=== PATIENT | female | born 1975 | race Caucasian/White ===

== ENCOUNTER 2021-04-16 05:02 | Emergency (ER) | payer OTHER ==
[~2021-04-16] VITALS: Ht 172.7 cm; Wt 83.9 kg
--- NOTE | 2021-04-16 05:15 | NUR ---
PATIENT BIBRA 89 C/O AMS WITH A OLERICULTURE TEACHER WITNESSED SEIZURE LASTING 1 MIN. PATIENT GIVEN 5MG OF VERSED ENROUTE. PATIENT RR EVEN AND UNLABORED, NO SOB NOTED. PATIENT CONNECTED TO LEASING PROPERTY MANAGER AND POX.
--- NOTE | 2021-04-16 05:15 | NUR ---
SEIZURE PRECAUTION INITIATED PER PROTOCOL
--- NOTE | 2021-04-16 05:44 | NUR ---
[facility] [place] - [phone]
[2021-04-16 05:45] LABS: BASOPHILS # (AUTO) 0.1 K/uL (0.0-0.2); BASOPHILS % (AUTO) 0.6 % (0.0-2.0); EOSINOPHILS % (AUTO) 1.1 % (0.0-6.0); HEMATOCRIT 41 % (33-45); HEMOGLOBIN 13.5 g/dL (11.5-14.8); LYMPHOCYTES # (AUTO) 2.9 K/uL (0.8-4.8); MEAN CORPUSCULAR HGB CONC 33 g/dl (31.0-36.0); MEAN CORPUSCULAR VOLUME 91 fL (82-100); MONOCYTES # (AUTO) 0.4 K/uL (0.1-1.30); MONOCYTES % (AUTO) 3.5 % (2.0-12.0); NEUTROPHILS # (AUTO) 7.2 K/uL (1.8-8.9); NEUTROPHILS % (AUTO) 67.8 % (43.0-81.0); PLATELET COUNT (AUTO) 334 K/uL (150-450); RED BLOOD CELL COUNT(AUTO) 4.53 MIL/uL (4.0-5.2); WHITE BLOOD COUNT (AUTO) 10.6 K/uL (4.3-11.0)
[2021-04-16 06:06] LABS: ALANINE AMINOTRANSFERASE 16 U/L (12-78); ALBUMIN 4.2 g/dL (3.4-5.0); ALCOHOL, BLOOD < 3 mg/dL (0-0); ALKALINE PHOSPHATASE 101 U/L (46-116); ASPARTATE AMINOTRANSFERASE 23 U/L (15-37); BILIRUBIN,TOTAL 0.2 mg/dL (0.2-1.0); CALCIUM, SERUM 8.9 mg/dL (8.5-10.1); CARBON DIOXIDE 14 mmol/L (21-32); CHLORIDE 100 mmol/L (98-107); CREATININE 1.2 mg/dL (0.6-1.3); GLUCOSE 148 mg/dL (74-106); SODIUM SERUM 136 mmol/L (136-145); TOTAL PROTEIN, SERUM 8.2 g/dL (6.4-8.2); UREA NITROGEN, BLOOD 8 mg/dL (7-18)
--- NOTE | 2021-04-16 06:44 | NUR ---
EX [phone] FATHER (JENNIFER) [phone] MOTHER (JO) [phone]
--- NOTE | 2021-04-16 06:55 | NUR ---
urine collected and sent to lab
[2021-04-16 11:52] VITALS: BP 122/76
--- NOTE | 2021-04-16 11:54 | NUR ---
DISCOUNTINUED IV ACCESS AT THIS TIME
--- NOTE | 2021-04-16 12:03 | NUR ---
Patient discharged to home in stable condition. Written and verbal after care instructions given. Patient verbalizes understanding of instruction.
[2021-04-29] MEDS ORDERED: LEVE1000 PO (18:50)
[2021-04-29] MEDS ORDERED: METH4TAB3 PO (18:50)
== END 2021-04-16 12:03 | disposition home or self-care (01) ==
LOC: ER 05:09
DX: R56.9 Unspecified convulsions (principal); R41.0 Disorientation, unspecified
CPT/HCPCS: 36415; 70450-TC; 80048-TC; 80076-TC; 84703-TC; 85025-TC; 85730-TC; G0480

== ENCOUNTER 2021-04-28 06:27 | Inpatient (IN) | payer OTHER ==
[~2021-04-28] VITALS: Ht 170.2 cm; Wt 95.3 kg
--- NOTE | 2021-04-28 06:45 | NUR ---
[id number] WITNESSED TONIC CLONIC SEIZURE 2-3 MIN WITH HX OF SEIZURE. PT CURENTLY IN A POSTICTAL STATES AXO x2 TO PERSON AND PLACE DOES NOT RECALL HAVING A SEIZURE OR MEDICATIONS USED TO TREAT HER SEIZURES.+INCONTINENCE, - ORAL TRAUMA, -PHYSICAL INJURIES NOTED. PT CHANGED INTO A GOWN AND PLACED ON A MONITOR. BREATHING EVEN AND UNLABORED AND ALL VITALS STABLE. MD WAS AT THE BEDSIDE FOR EVAL.
--- NOTE | 2021-04-28 06:45 | NUR ---
Note treyone in EDM - 04/28/21 at 0707 by MARITA BIBLAURO WITNESSED TONIC CLONIC SEIZURE 2-3 MIN WITH HX OF SEIZURE. PT CURENTLY IN A POSTICTAL STATES AXO x2 TO PERSON AND PLACE DOES NOT RECALL HAVING A SEIZURE OR MEDICATIONS USED TO TREAT HER SEIZURES.-INCONTINENCE, - ORAL TRAUMA, -PHYSICAL INJURIES NOTED. PT CHANGED INTO A GOWN AND PLACED ON A MONITOR. BREATHING EVEN AND UNLABORED AND ALL VITALS STABLE. MD WAS AT THE BEDSIDE FOR EVAL.
[2021-04-28] MEDS ORDERED: IV NS 0.9% 1,000 ML BAG IV ONE (07:00)
--- NOTE | 2021-04-28 07:24 | NUR ---
REPORT GIVEN TO LIANET BURKS FOR MAHESH
--- NOTE | 2021-04-28 07:32 | NUR ---
Pt laying comfortably in bed comfortably with occasional jerks. Pleasant mood. Mild aphasia, a&ox2 to person and place, does not recall seizure, short term memory loss as evidenced by greating the same healthcare staff Q5 seconds. On monitor. Tachcardic HR 113. BP 156/76. V/S otherwise stable. On monitor. Addendum: 04/28/21 at 0826 by MARELY SEIZURE PRECAUTIONS IN PLACE
[2021-04-28 07:36] LABS: PHENYTOIN (DILANTIN) 1.4 ug/ml (10.0-20.0); VALPROIC ACID 1 ug/mL (50-100)
[2021-04-28 07:41] LABS: ALANINE AMINOTRANSFERASE 20 U/L (12-78); ALBUMIN 4.4 g/dL (3.4-5.0); ALCOHOL, BLOOD < 3 mg/dL (0-0); ALKALINE PHOSPHATASE 97 U/L (46-116); ASPARTATE AMINOTRANSFERASE 13 U/L (15-37); BILIRUBIN,DIRECT 0.1 mg/dL (0.0-0.2); BILIRUBIN,TOTAL 0.3 mg/dL (0.2-1.0); CALCIUM, SERUM 9.4 mg/dL (8.5-10.1); CARBON DIOXIDE 23 mmol/L (21-32); CHLORIDE 101 mmol/L (98-107); GLUCOSE 144 mg/dL (74-106); POTASSIUM 3.4 mmol/L (3.5-5.1); SODIUM SERUM 139 mmol/L (136-145); TOTAL PROTEIN, SERUM 8.2 g/dL (6.4-8.2); UREA NITROGEN, BLOOD 8 mg/dL (7-18)
[2021-04-28] MEDS ORDERED: LORAZEPAM INJ 2 MG/ML VIAL ONE (08:11)
--- NOTE | 2021-04-28 08:17 | NUR ---
WITNESSED EAN CLONIC SEIZURE LASTING 1 MIN, BLOODY EMESIS, PT SUCTIONED, MD AWARE, ATIVAN 2MG GIVEN, SINUS TACHCARDIA HR 103
[2021-04-28] MEDS ORDERED: LORAZEPAM INJ 2 MG/ML VIAL IV ONE (08:30)
[2021-04-28] MEDS ORDERED: LEVETIRACETAM (500MG) 1,000 MG in IV NS 0.9% 100 ML IV SCH (08:30)
--- NOTE | 2021-04-28 08:34 | NUR ---
MOVE SHEET SUBMITTED AND CALLED FOR TELE BED.
--- NOTE | 2021-04-28 08:48 | NUR ---
PT IS NOW AAOX3 TO PERSON, PLACE, TIME. ABLE TO RESPOND TO COMMANDS AND ENGAGE IN CONVERSATION. PT GIVEN BED CAMPBELL
--- NOTE | 2021-04-28 09:18 | NUR ---
Urine sample obtained and sent to lab.
--- NOTE | 2021-04-28 09:55 | NUR ---
BED 113-1
[2021-04-28] MEDS ORDERED: MIRT-90 PO (09:59)
[2021-04-28] MEDS ORDERED: CLON0.1T PO (09:59)
[2021-04-28] MEDS ORDERED: GABA800T11 PO (09:59)
--- NOTE | 2021-04-28 10:03 | NUR ---
bcovid sample obtained and sent to lab
--- NOTE | 2021-04-28 10:22 | NUR ---
GAVE REPORT TO FLOOR RN
--- NOTE | 2021-04-28 10:25 | NUR ---
RN NOTE REPORT RECEIVED FROM LIANET YAO RN.
--- NOTE | 2021-04-28 10:47 | NUR ---
PT TAKEN TO CT
--- NOTE | 2021-04-28 11:48 | NUR ---
[facility] CALLED ICT TEACHER PAGED.
--- NOTE | 2021-04-28 12:52 | NUR ---
TRANSFERED PT TO UNIT. RANDALL BURKS ASSUMED MAHESH
[2021-04-28] MEDS ORDERED: LORAZEPAM INJ 2 MG/ML VIAL IV PRN (13:00)
[2021-04-28] MEDS: methylPREDNISolone SOD SUCC 40 MG/ML VIAL IV SCH ×2 (13:00→20:13)
[2021-04-28] MEDS ORDERED: MAGNESIUM HYDROXIDE 30 ML UDC PO PRN (13:00)
[2021-04-28] MEDS ORDERED: methylPREDNISolone SOD SUCC 125 MG/2ML VIAL IV ONE (13:00)
[2021-04-28] MEDS ORDERED: Z GUARD REMEDY 2 OZ OINT TP PRN (13:00)
[2021-04-28] MEDS ORDERED: ACETAMINOPHEN 325 MG TABLET PO PRN (13:00)
[2021-04-28] MEDS ORDERED: MAG HYDROX/AL HYDROX/SIMETH 30 ML UDC PO PRN (13:00)
[2021-04-28] MEDS ORDERED: ONDANSETRON HCL/PF 4 MG/2 ML VIAL IVP PRN (13:00)
--- NOTE | 2021-04-28 13:08 | NUR ---
RN NOTE PATIENT RECEIVED IN UNIT, VITAL SIGNS STABLE. PATIENT ON ROOM AIR WITH NO SIGNS OF LABORED BREATHING. TELE MONITOR ON. SEIZURES PRECAUTIONS IN PLACE. NO SIGNS OF DISTRESS NOTED AT THIS TIME. WILL CONTINUE TO MONITOR.
[2021-04-28 13:30] LABS: BASOPHILS % (AUTO) 0.8 % (0.0-2.0); EOSINOPHILS % (AUTO) 0.3 % (0.0-6.0); HEMATOCRIT 40 % (33-45); HEMOGLOBIN 13.7 g/dL (11.5-14.8); LYMPHOCYTES # (AUTO) 1.1 K/uL (0.8-4.8); LYMPHOCYTES % (AUTO) 20.5 % (20.0-44.0); MEAN CORPUSCULAR HGB CONC 34 g/dl (31.0-36.0); MEAN CORPUSCULAR VOLUME 88 fL (82-100); MONOCYTES # (AUTO) 0.3 K/uL (0.1-1.30); MONOCYTES % (AUTO) 4.9 % (2.0-12.0); NEUTROPHILS # (AUTO) 3.8 K/uL (1.8-8.9); NEUTROPHILS % (AUTO) 73.5 % (43.0-81.0); PLATELET COUNT (AUTO) 328 K/uL (150-450); RED BLOOD CELL COUNT(AUTO) 4.55 MIL/uL (4.0-5.2); WHITE BLOOD COUNT (AUTO) 5.2 K/uL (4.3-11.0)
--- NOTE | 2021-04-28 13:40 | NUR ---
TEXTED DR. YUN FOR MRI APPROVAL.
[2021-04-28 14:56] LABS: BILIRUBIN,URINE Negative (NEGATIVE); COLOR,URINE YELLOW (YELLOW); LEUKOCYTE ESTERASE ,URINE Negative (NEGATIVE); NITRITE, URINE Negative (NEGATIVE); PROTEIN,URINE Negative (NEGATIVE); UGLUCOSE Negative (NEGATIVE); UROBILINOGEN,URINE 0.2 EU/dL (0.2)
[2021-04-28 16:00] VITALS: BP 133/71
[2021-04-28] MEDS: GABAPENTIN 400 MG CAPSULE PO SCH ×2 (16:10→20:14)
--- NOTE | 2021-04-28 18:49 | NUR ---
RN CLOSING NOTE PATIENT IN BED, AWAKE, A&OX4. PATIENT ON ROOM AIR WITH NO SIGNS OF LABORED BREATHING AT THIS TIME. TELE MONITOR ON, SINUS RHYTHM. RIGHT AC 20G IV IN PLACE, PATENT WITH NO SIGNS OF INFILTRATION. ALL NEEDS ATTENDED DURING SHIFT. BED LOCKED AND IN LOWEST POSITION, CALL LIGHT WITHIN REACH, 3 SIDE RAILS UP. SEIZURE PRECAUTION IN PLACE. WILL ENDORSE TO AUDIOLOGY ASSISTANT NURSE.
--- NOTE | 2021-04-28 19:15 | NUR ---
RN NOTES RECEIVED REPORT FROM MORNING NURSE. PATIENT IN BED A/O X 4. NO SOB NO DISTRESS. WITH IV ACCESS ON R AC G#20 PATENT FLUSHES WELL. ALL SAFETY MEASURES IN PLACE. PADDED SIDE RAILS IN PLACE. HOB ELEVATED, CALL LIGHT WITHIN REACH. WILL CONTINUE TO MONITOR THE PATIENT
[2021-04-28 20:00] VITALS: BP 140/87
[2021-04-28] MEDS: LEVETIRACETAM (500MG) 500 MG in IV NS 0.9% 100 ML IV SCH (20:13)
[2021-04-28] MEDS ORDERED: CLONIDINE HCL 0.1 MG TABLET PO SCH (22:00)
[2021-04-29] VITALS: BP 134/67
[2021-04-29 04:00] VITALS: BP 130/70
[2021-04-29] MEDS: methylPREDNISolone SOD SUCC 40 MG/ML VIAL IV SCH (05:10)
--- NOTE | 2021-04-29 06:39 | NUR ---
RN NOTES PATIENT REMAINS STABLE THE WHOLE SHIFT NO DISTRESS, NO SOB, NO SIGNIFICANT CHANGES IN HEALTH CONDITION THIS SHIFT NO EPISODE OF SEIZURE. ALL DUE MEDS GIVEN ORDERED. ALL NEEDS ATTENDED. HOB ELEVATED, CALL LIGHT WITHIN REACH. ALL SAFETY MEASURES IN PACE AT ALL TIMES. WILL CONTINUE TO MONITOR
--- NOTE | 2021-04-29 07:32 | NUR ---
RN OPENING NOTE PATIENT RECEIVED IN BED, RESTING, A&OX4. PATIENT ON TELE MONITOR, SINUS RHYTHM. RIGHT AC 20G IN PLACE, PATENT WITH NO SIGNS OF INFILTRATION. NO SIGNS OF DISTRESS NOTED AT THIS TIME. BED LOCKED AND IN LOWEST POSITION, 2 SIDE RAILS UP, CALL LIGHT WITHIN REACH. WILL CONTINUE TO MONITOR.
[2021-04-29 08:00] VITALS: BP 124/76
[2021-04-29] MEDS: LEVETIRACETAM (500MG) 500 MG in IV NS 0.9% 100 ML IV SCH (08:00)
[2021-04-29] MEDS: GABAPENTIN 400 MG CAPSULE PO SCH ×3 (08:01→17:02)
[2021-04-29] MEDS ORDERED: PANTOPRAZOLE 40 MG VIAL IV SCH (09:00)
[2021-04-29] MEDS ORDERED: LEVETIRACETAM (500MG) 500 MG in IV NS 0.9% 100 ML IV ONE (09:00)
--- NOTE | 2021-04-29 09:08 | NUR ---
RN NOTE PATIENT TO MRI. 0900 KEPPRA HELD UNTIL PATIENT RETURNS TO THE UNIT.
[2021-04-29 10:08] LABS: BASOPHILS % (AUTO) 0.4 % (0.0-2.0); EOSINOPHILS % (AUTO) 0.4 % (0.0-6.0); HEMATOCRIT 38 % (33-45); HEMOGLOBIN 12.8 g/dL (11.5-14.8); LYMPHOCYTES # (AUTO) 0.9 K/uL (0.8-4.8); LYMPHOCYTES % (AUTO) 12.5 % (20.0-44.0); MEAN CORPUSCULAR HGB CONC 34 g/dl (31.0-36.0); MEAN CORPUSCULAR VOLUME 88 fL (82-100); MONOCYTES # (AUTO) 0.3 K/uL (0.1-1.30); MONOCYTES % (AUTO) 4.2 % (2.0-12.0); NEUTROPHILS # (AUTO) 5.7 K/uL (1.8-8.9); NEUTROPHILS % (AUTO) 82.5 % (43.0-81.0); PLATELET COUNT (AUTO) 263 K/uL (150-450); RED BLOOD CELL COUNT(AUTO) 4.28 MIL/uL (4.0-5.2); WHITE BLOOD COUNT (AUTO) 6.9 K/uL (4.3-11.0)
[2021-04-29 10:08] LABS: *ANA ANTI-CENTROMERE B AB <0.2 AI (0.0-0.9); *ANA ANTI-DNA(DS) AB, QN <1 IU/mL (0-9); *ANA ANTI-JO-1 <0.2 AI (0.0-0.9); *ANA ANTICHROMATIN ANTIBODY <0.2 AI (0.0-0.9); *ANA RNP ANTIBODIES <0.2 AI (0.0-0.9); *ANA SJOGREN'S ANTI-SS-A <0.2 AI (0.0-0.9); *ANA SJOGREN'S ANTI-SS-B <0.2 AI (0.0-0.9); *ANAANTI-SCLERODERMA-70 AB <0.2 AI (0.0-0.9); *ANASMITH AB <0.2 AI (0.0-0.9)
[2021-04-29 10:32] LABS: CALCIUM, SERUM 8.7 mg/dL (8.5-10.1); CREATININE 0.8 mg/dL (0.6-1.3); MAGNESIUM 2.4 mg/dL (1.8-2.4); PHOSPHORUS 2.5 mg/dL (2.5-4.9); POTASSIUM 4.6 mmol/L (3.5-5.1)
[2021-04-29 10:45] LABS: THYROID STIMULATING HORMONE 0.343 uIU/mL (0.358-3.74)
[2021-04-29 12:00] VITALS: BP 128/79
[2021-04-29 16:00] VITALS: BP 138/76
--- NOTE | 2021-04-29 18:24 | NUR ---
RN NOTE PATIENT DISCHARGED PER ORDER. ESCORTED TO FRONT EXIT, PRIVATE CAR WITH FAMILY MEMBERS PICKED HER UP. PATIENT MEDICALLY STABLE AT TIME OF DISCHARGED.
[2021-04-29] MEDS ORDERED: METH4TAB3 PO (18:50)
[2021-04-29] MEDS ORDERED: LEVE1000 PO (18:50)
[2021-04-29] MEDS ORDERED: LEVETIRACETAM (500MG) 1,000 MG in IV NS 0.9% 100 ML IV SCH (21:00)
[2021-04-30] MEDS ORDERED: methylPREDNISolone SOD SUCC 40 MG/ML VIAL IV SCH (09:00)
== END 2021-04-29 18:40 | disposition home or self-care (01) | DRG 101 ==
LOC: ER 06:44 → TELE1 09:56
PROVIDERS: ADMIT Registered Nurse; ATTEND Registered Nurse
DX: G40.901 Epilepsy, unspecified, not intractable, with status epilepticus (principal); E66.9 Obesity, unspecified; I77.6 Arteritis, unspecified; I10 Essential (primary) hypertension; S01.512A Laceration without foreign body of oral cavity, initial encounter; F32.A Depression, unspecified; Z68.32 Body mass index [BMI] 32.0-32.9, adult; Z20.822 Contact with and (suspected) exposure to COVID-19; X58.XXXA Exposure to other specified factors, initial encounter; Y93.9 Activity, unspecified; Y92.009 Unspecified place in unspecified non-institutional (private) residence as the place of occurrence of the external cause
CPT/HCPCS: 36415; 70450-TC; 70551-TC; 71045-TC; 80048-TC; 80061-TC; 80076-TC; 80164-TC; 80185-TC; 82962-TC; 83735-TC; 84100-TC; 84443-TC; 84703-TC; 85025-TC; 85730-TC; 86225; 86235; 87081-TC; 95819-TC; G0378; G0480; J1953; J2060; J2405; J2920; J7030; J7050